=== PATIENT | male | born 1985 | race Two or more races ===

== ENCOUNTER 2024-09-27 15:28 | Emergency (ER) | payer MEDICAID, SELFPAY ==
[2024-09-27 15:44] VITALS: BP 141/88; PULSE 110; PULSE 90; RESP 15; RESP 16; TEMP 36.8; O2SAT 95; O2SAT 98; BMI 29.8
[2024-09-27 17:27] VITALS: BP 137/86; PULSE 88; RESP 18; TEMP 37.2; O2SAT 95
--- NOTE | 2024-09-27 17:29 | XR_ITS ---
Examination: AP chest single view Technique one AP portable upright chest single view Exam date and time: September 19, 2024 1742 hrs. Comparison December 24, 2018 Indications: Onset chest pain today. Findings: Minimal prominence left ventricle No pneumonia or pulmonary edema The osseous structures are intact Impression: No active disease
--- NOTE | 2024-09-27 17:29 | EKG_ITS ---
[facility] Test Date: 2024-09-27 Pat Name: ELLEN GONZALEZ Department: Room: - Gender: Male Government Relations Director: : 1985 Requested By: Arleen Bal Order Number: [id number] Reading MD: Arleen Bal Measurements Intervals [place] Rate: 87 P: 43 VT: 156 QRS: 34 QRSD: 118 T: 21 QT: 367 QTc: 442 Interpretive Statements SINUS RHYTHM INCOMPLETE RIGHT BUNDLE BRANCH BLOCK [90+ ms QRS DURATION, TERMINAL R IN V1/V2, 40+ ms S IN I/aVL/V4/V5/V6] No previous ECG available for comparison /store/S0/[id number].pdf
[2024-09-27 18:00] LABS: Basophils % (Auto) 1 % (0-2.5); Eosinophils % (Auto) 1 % (0-10); Hematocrit 43.1 % (41.0-53.0); Hemoglobin 14.9 g/dL (13.5-16.0); Immature Granulocytes % (Auto) 0 % (0-0); Immature Granulocytes Auto 0.02 Thou/mm3 (0.00-0.00); Lymphocytes # (Auto) 1.4 Thou/mm3 (1.0-4.8); Lymphocytes % (Auto) 17 % (10-50); Mean Corpuscular HGB Conc 34.6 g/dl (31.0-37.0); Mean Corpuscular Hemoglobin 29.3 pg (25.0-35.0); Mean Corpuscular Volume 85 fL (80-100); Monocytes # (Auto) 0.5 Thou/mm3 (0.0-0.8); Monocytes % (Auto) 6 % (0-12); Neutrophils # (Auto) 6.1 Thou/mm3 (1.8-7.7); Neutrophils % (Auto) 76 % (37-80); Nucleated Red Blood Cell % 0 /100 WBC (0); Platelet Count 167 Thou/mm3 (140-440); RDW Standard Deviation 39.3 fL (35.1-43.9); Red Blood Count 5.09 Miln/mm3 (4.50-5.90)
--- NOTE | 2024-09-27 18:07 | EDNOTE_ITS ---
ED Chest Pain RME/HPI General Chief Complaint: Chest Pain Stated Complaint: CHEST PAIN Time Seen by Provider: 09/27/24 16:21 Arrival date/time: 09/27/24 15:28 This is a 39-year-old male that comes in with complaints of chest pain and left arm pain that started prior to arrival. Patient reports history of chronic alcoholism. Patient admitted last year for GI bleed with acute alcohol withdrawal. Previous EGD showed esophagitis; acute gastritis without bleeding; large ulceration at GE junction; large Violeta-Victoria tear. Patient reports that he drinks daily states he drinks about 6 beers a day. Related Data Allergies Allergy/AdvReac Type Severity Reaction Status Date / Time No Known Allergies Allergy Verified 12/16/22 23:36 Review of Systems Review of Systems Systems Reviewed: All systems reviewed, normal except as documented Past Medical History Past Medical History CARDIAC: Negative Congestive Heart Failure RESPIRATORY: Negative Chronic Obstructive Pulmonary Disease (COPD) GENITOURINARY: Negative Renal Disease ENDOCRINE: Negative Diabetes Mellitus Type 1 or Diabetes Mellitus Type 2 Social History SMOKING STATUS: Never smoker Travel History EBOLA RISK: No ED Exam General General appearance: Present alert and in no apparent distress Head Head exam: Present atraumatic Eye Eye exam: Present normal appearance, PERRL and EOMI ENT ENT exam: Present normal exam, normal oropharynx and mucous membranes moist Neck Neck exam: Present normal inspection, full ROM and trachea midline Chest Chest inspection: Present normal inspection and symmetric chest wall rise Respiratory Respiratory exam: Present normal lung sounds bilaterally Cardiovascular Cardiovascular exam: Present regular rate, normal rhythm and normal heart sounds Abdominal Exam Abdominal exam: Present soft Extremities Exam Extremities exam: Present normal inspection and full ROM Back Exam Back exam: Present normal inspection and full ROM Neurological Exam Neurological exam: Present alert, oriented X3 and CN II-XII intact Psychiatric Psychiatric exam: Present normal affect and normal mood Skin Skin exam: Present warm, dry, intact and normal color Course Quality Measures none Orders Category Date Time Status EKG (ED ONLY) *Do not use* NOW Care 09/27/24 17:[address] abdomen pelvis wo con Stat Exams 09/27/24 19:42 Completed EKG (ED Only) Stat Exams 09/27/24 17:29 Draft XR chest 1V Stat Exams 09/27/24 17:29 Completed BNP [B-Type Natriuretic Peptide] Stat Lab 09/27/24 17:50 Completed CBC Stat Lab 09/27/24 17:50 Completed Comprehensive Metabolic Panel Stat Lab 09/27/24 17:50 Completed Drug Screen,Urine Stat Lab 09/27/24 19:14 Completed PT [Prothrombin Time with INR] Stat Lab 09/27/24 17:50 Completed Troponin I Stat Lab 09/27/24 17:50 Completed Urinalysis Stat Lab 09/27/24 19:14 Completed Urine Culture Stat Lab 09/27/24 19:14 Completed Ibuprofen Tab [Motrin Tab] Med 09/27/24 21:31 Discontinued 800 mg PO X1 ONE cefTRIAXone [Rocephin] 1,000 mg Med 09/27/24 21:31 Discontinued Lidocaine 1% 20 ml [Xylocaine 1% 20 ML] 2.1 ml IM X1 Vital Signs Vital signs: Vital Signs Temperature 98.3 F 09/27/24 15:44 Pulse Rate 90 09/27/24 15:44 Respiratory Rate 15 09/27/24 15:44 Blood Pressure 141/88 H 09/27/24 15:44 Pulse Oximetry (%) 95 09/27/24 15:44 Oxygen Delivery Method Room Air 09/27/24 15:44 Procedures -ED EKG Interpretation #1: Date of EK09/27/24 Time of EK:42 Rate: 87 Interpretation: Interpreted by me (sinus rhythm ) EKG Impression: No ectopy and Normal intervals Chest Pain MDM Narrative MDM Narrative:: chest x ray shows: Findings: Minimal prominence left ventricle No pneumonia or pulmonary edema The osseous structures are intact Impression: No active disease ct abdomen pelvis: Findings: Diffuse fatty liver, no focal liver lesions No gallstones No pancreatic or adrenal mass Spleen is not enlarged No renal or ureteral calculi, no hydronephrosis Aorta normal size Normal appendix No bowel obstruction Urinary bladder intact No prostatomegaly Intact osseous structures Impression: Fatty liver No renal or ureteral calculi, no hydronephrosis Normal appendix No bowel obstruction or diverticulitis No bladder mass or bladder calculi Labs are unremarkable for the most part patient had slightly elevated LFTs. Patient also had blood in urine. CT scan does not show infection nor kidney stones. Will give the patient a dose of Rocephin and make him follow-up with his urine culture. Patient does not report difficulty urinating. Pt given ibuprofen for pAIN Patient data External records reviewed:: [facility] previous records Clinical information provided by:: patient Social determinants that could affect healthcare access:: none Patient has the following chronic illnesses:: NONE How is presenting disease/condition affected by chronic disease/condition?: uneffected by Evaluation data The following diagnostics were reviewed and interpreted by me:: lab results, radiology exam(s) and EKG tracing(s) Lab and/or radiology exams considered but not ordered:: NONE Interpretation Summary: SEE NOTE Medications / Prescriptions Medications or Prescriptions considered but not ordered:: NONE Medication administrations:: Medication Administration History Discontinued Medications Ceftriaxone Sodium 1,000 mg/ (Lidocaine HCl 2.1 ml) 0 mg IM X1 ONE Stop: 09/27/24 21:32 Last Admin: 09/27/24 21:44 Dose: 1,000 mg Documented By: MAURO Ibuprofen (Ibuprofen Tab 400 Mg Tablet) 800 mg PO X1 ONE Stop: 09/27/24 21:32 Last Admin: 09/27/24 21:43 Dose: 800 mg Documented By: MAURO SEE MAR Consultations Consultation(s) initiated? (list below): No Diagnosis Most likely diagnosis given after review of the tests above:: HEMATURIA Admission Indicated Admission indicated?: not indicated Admission Request Was there a request for admission?: No Disposition Plan Disposition Plan: Discharge Discharge Attestation Discharge Attestation: The patient and all family members were given an opportunity to ask questions and understood the discharge instructions. Discharge instructions specifically effects, indications for sooner follow up or return to the emergency department, and the expected course of current diagnosis. Patient condition: Stable Discharge Plan Plan Patient Disposition: HOME (Self Care) Patient condition on transfer: Stable Prescriptions/Referrals Referrals: Linden Valente MD [Primary Care Provider] - In 1 week Problem List Clinical Impression: Hematuria, Elevated liver function tests Patient/Caregiver Discharge Instructions Discharge Activity: activity as tolerated Education Materials: ED Hematuria Additional Instructions: FOLLOW Up with primary provider in 1 to 2 days. Come back to the emergency room if symptoms change or worsen. Urine was sent for culture please follow-up with culture. Print Language: Gabonese Stand Alone Forms: Amisha Award Info., Patient Portal Info Letter PA/ABATTOIR MANAGER Supervising Physician PA/SAVANNA Supervising Physician: marry
[2024-09-27 18:16] LABS: INR 1.1 (0.9-1.3); Prothrombin Time 11.8 Seconds (9.0-12.2)
[2024-09-27 18:31] LABS: B-Type Natriuretic Peptide < 20 pg/mL (0-100)
[2024-09-27 18:34] LABS: Alanine Aminotransferase 64 U/L (10-49); Albumin, Serum 4.7 gm/dL (3.5-5.0); Albumin/Globulin Ratio 1.7 (1.2-2.2); Alkaline Phosphatase 99 U/L (46-116); Anion Gap 11 (7-16); Aspartate Amino Transferase 55 U/L (0-34); BUN/Creatinine Ratio 19 Ratio (12-20); Bilirubin,Total 1.1 mg/dL (0.3-1.2); Blood Urea Nitrogen 15 mg/dL (9-23); Carbon Dioxide 26.9 mMol/L (20.0-31.0); Chloride 103 mMol/L (98-107); Creatinine (Component) 0.8 mg/dL (0.6-1.3); Estimated Creatinine Clearance 128.5 mL/min (>60); Globulin 2.7 gm/dL (2.3-3.5); Glucose 116 mg/dL (74-106); Osmolality,Calculated 283 (275-295); Sodium 141 mMol/L (136-145); Total Protein 7.4 gm/dL (5.7-8.2); Troponin I < 0.002 ng/mL (0.0-0.045); eGFR > 60 See Note
[2024-09-27 18:48] VITALS: BP 140/93; PULSE 85; RESP 20; TEMP 36.9; O2SAT 95
[2024-09-27 19:18] VITALS: BP 125/80; PULSE 96; RESP 16; O2SAT 95
[2024-09-27 19:32] LABS: Collection Type, Urine Clean Catch; Squamous Epithelial Cell,Urine 0 /hpf (0-5)
[2024-09-27 19:41] LABS: Bacteria,Urine Rare; Bilirubin,Urine Negative (Negative); Blood,Urine 1+ (Negative); Clarity,Urine Clear (Clear/Hazy); Color,Urine Yellow (Lt Yel-Yel); Glucose, Urine Negative (Negative); Ketones,Urine Negative (Negative); Leukocyte Esterase,Urine Negative (Negative); Nitrite,Urine Negative (Negative); PH,Urine 7.5 (5.0-7.0); Protein,Urine 1+ (Neg - Trace); RBC,Urine 65 /hpf (0-3); Specific Gravity,Urine 1.033 (1.001-1.035); WBC,Urine 2 /hpf (0-5)
--- NOTE | 2024-09-27 19:42 | XR_ITS ---
Examination: CT abdomen and pelvis without contrast. Coronal 3-D reconstructions. Sagittal 2-D reconstructions. Date and time of exam:September 19, 2024 1950 hrs. Comparison: May 03, 2023 Indications: Generalized abdominal pain and nausea beginning today CTDI: vol (mGy): 7.8 DLP: (mGycm): 493 Technique: Axial images of the abdomen have been obtained, 3 mm slice thickness Intravenous contrast material has not been administered. Low dose protocols were performed. One or more of the following dose reduction techniques were used; automated exposure control, adjustment of the mA and/or KV according to patient size, use of iterative reconstruction technique. Findings: Diffuse fatty liver, no focal liver lesions No gallstones No pancreatic or adrenal mass Spleen is not enlarged No renal or ureteral calculi, no hydronephrosis Aorta normal size Normal appendix No bowel obstruction Urinary bladder intact No prostatomegaly Intact osseous structures Impression: Fatty liver No renal or ureteral calculi, no hydronephrosis Normal appendix No bowel obstruction or diverticulitis No bladder mass or bladder calculi
[2024-09-27 19:45] LABS: Amphetamine/Methamp Scrn,U Negative (Negative); Barbiturate Screen,Urine Negative (Negative); Benzodiazepines Screen,Urine Negative (Negative); Benzoylecgonine Screen, Ur Negative (Negative); Fentanyl Screen,Urine Negative (Negative); Opiate Screen,Urine Negative (Negative); THC Screen,Urine Negative (Negative)
[2024-09-27 21:21] VITALS: BP 134/85; PULSE 93; RESP 17; O2SAT 95
[2024-09-27] MEDS: IBUPROFEN TAB 400 MG TABLET 800 MG PO (21:43)
[2024-09-27] MEDS: cefTRIAXone 1,000 MG, LIDOCAINE 1% 20 ML 2.1 ML IM (21:44)
[2024-09-27 22:04] VITALS: BP 128/76; PULSE 86; RESP 16; TEMP 36.8; O2SAT 98
== END 2024-09-27 22:05 | disposition home or self-care (01) ==
PROVIDERS: Nurse Practitioner Family; Emergency Provider Emergency Medicine; PCP Family Medicine
DX: R31.9 Hematuria, unspecified (principal); F10.20 Alcohol dependence, uncomplicated; K76.0 Fatty (change of) liver, not elsewhere classified; R79.89 Other specified abnormal findings of blood chemistry; M79.602 Pain in left arm; R07.9 Chest pain, unspecified
CPT/HCPCS: 36415; 71045; 74176; 80053; 80307; 81001; 83880; 84484; 85025; 85610; 87086; 93005; 96372; 99284; J0696; J3490; A9270

== ENCOUNTER 2025-01-22 04:38 | Emergency (ER) | payer MEDICAID, SELFPAY ==
[2025-01-22 04:40] VITALS: PULSE 77; O2SAT 97
[2025-01-22 04:48] VITALS: BP 165/98; PULSE 80; RESP 19; TEMP 37; O2SAT 96; BMI 30.7
--- NOTE | 2025-01-22 04:51 | PD.EDADULT ---
ED General RME/HPI General Chief complaint: Headache Stated complaint: ELEVATED BP Time Seen by Provider: 01/22/25 04:41 Arrival date/time: 01/22/25 04:38 RME / HPI RME / HPI narrative: Dr. Ashby?s Main ED Evaluation: 39yo male with a history of HTN, alcohol abuse BIBA from home presents to the ED for a chief complaint of high blood pressure. Patient states he called EMS due to feeling shaky, reporting he did not take his antihypertensives last night. Patient states he last drank alcohol at 1700. Patient denies any headache, dizziness, lightheadedness, blurry vision, chest pain, shortness of breath or any other associated symptoms. No known allergies. Per EMS, patient took his prescribed propanolol before he called EMS. Related Data Allergies Allergy/AdvReac Type Severity Reaction Status Date / Time No Known Allergies Allergy Verified 01/22/25 04:42 Review of Systems Review of Systems Systems Reviewed: All systems reviewed, normal except as documented ED Exam Narrative Physical exam: GENERAL APPEARANCE: alert and oriented x 4, well-developed, well-nourished, no acute distress VITALS: All vitals were reviewed and the pulse ox is 96% on room air, which is normal according to my interpretation. HEENT: Normocephalic, atraumatic; pupils equal, round, reactive to light; EOMI; mucous membranes pink, moist; oropharynx clear NECK: Supple LUNGS: CTABL; no wheezes, no rales, no rhonchi HEART: Regular rate, regular rhythm; normal S1, S2; no murmurs ABDOMEN: non distended; normal BS; soft, no tenderness, no guarding, no rebound; no masses, no organomegaly, no hernia BACK: no CVA tenderness EXTREMITIES: atraumatic; no edema NEUROLOGIC: awake; alert and oriented x4; cranial nerves II-XII grossly intact; no focal sensory or motor deficits PSYCHIATRIC: appropriate mood and affect SKIN: warm, dry, normal color; no rashes Course Quality Measures none Orders Category Date Time Status EKG (ED ONLY) *Do not use* NOW Care 01/22/25 05:02 Completed Insert IV STAT Care 01/22/25 05:[address] head/brain wo con Stat Exams 01/22/25 06:33 Completed EKG (ED Only) Stat Exams 01/22/25 05:02 Ordered XR chest 1V portable Stat Exams 01/22/25 05:03 Completed Alcohol, Blood Medical Stat Lab 01/22/25 05:39 Completed CBC Stat Lab 01/22/25 05:39 Completed Comprehensive Metabolic Panel Stat Lab 01/22/25 05:39 Completed Magnesium Stat Lab 01/22/25 05:39 Completed Prothrombin Time with INR Stat Lab 01/22/25 05:39 Completed Troponin I Stat Lab 01/22/25 05:39 Completed Urinalysis, C/S if Indicated Stat Lab 01/22/25 05:24 Completed Acetaminophen Tab [Tylenol ES Tab] Med 01/22/25 10:06 Discontinued 1,000 mg PO X1 ONE cloNIDine HCL [Catapres] Med 01/22/25 05:43 Discontinued 0.1 mg PO X1 ONE Vital Signs Vital signs: Vital Signs Temperature 98.6 F 01/22/25 04:48 Pulse Rate 80 01/22/25 04:48 Respiratory Rate 19 01/22/25 04:48 Blood Pressure 165/98 H 01/22/25 04:48 Pulse Oximetry (%) 96 01/22/25 04:48 Oxygen Delivery Method Room Air 01/22/25 04:48 Discharge Plan Plan Patient Disposition: HOME (Self Care) Patient condition on transfer: Stable Prescriptions/Referrals Referrals: Ashia Jacobson, SHIRT FOLDING MACHINE OPERATOR-C [Primary Care Provider] - In 1 week Problem List Clinical Impression: Alcohol abuse, Headache, Hypertension Patient/Caregiver Discharge Instructions Education Materials: Alcohol Addiction, ED Alcohol Abuse Additional Instructions: Your medical workup and CAT scan today were all negative. Please stop drinking as we discussed and seek help. Return if you are getting worse. Please consider taking a multivitamin daily for the next 3 months since alcohol depletes you have many vitamins and minerals. Eat a balanced diet. Follow-up with your doctor to address your blood pressure problems. Print Language: Citizen Of [place] Stand Alone Forms: Patient Portal Info Letter MDM Patient Acuity Low Acuity (complete MDM as needed) Narrative: Scribe Attestation: 01/22/25 Velia Jewell am scribing for and in the presence of Dr. Ashby. Labs and CXR are pending at the time of signout. 0543: Patient's blood pressure is 165/97. Clonidine 0.1mg ordered. 0600: Care signed out to Dr. Salazar (emergency physician). Past medical, surgical, social and family history reviewed. Vitals and home medications reviewed. Results and treatment plan discussed. They will assume the care of the patient at this time and will follow the patient, pending CXR, labs, and re-evaluation. Clinical Information Provided by: patient and EMS Medical Records reviewed [facility] (Per chart review, patient was seen here on 09/27/24 for elevated LFTs.) Chronic Illness/Social Conditions which may negatively complicate care or outcome(s)-explain: Hx of noncompliance, ETOH/drugs/substance abuse and Liver disease EKG EKG Interpretation(s): EKG done at 0514, NSR, rate of 75, normal axis, no ectopy, no acute ischemia, according to my interpretation. Medication Administration(s) Medication Administration History Discontinued Medications Acetaminophen (Acetaminophen 500 Mg Tablet) 1,000 mg PO X1 ONE Stop: 01/22/25 10:07 Last Admin: 01/22/25 10:14 Dose: 1,000 mg Documented By: RD Clonidine (Clonidine Hcl 0.1 Mg Tablet) 0.1 mg PO X1 ONE Stop: 01/22/25 05:44 Last Admin: 01/22/25 06:34 Dose: 0.1 mg Documented By: SF Diagnosis Differential Diagnosis ED Complaint MDM: essential HTN, hypertensive crisis, hypertensive urgency, med noncompliance
--- NOTE | 2025-01-22 05:03 | XR_ITS ---
Examination: AP chest single view Technique one AP portable upright chest single view Exam date and time: January 22, 2025 0550 hours Comparison September 19, 2024 INDICATIONS: Coughing today. FINDINGS: Normal heart size. Lungs are clear. The osseous structures are intact IMPRESSION: No active disease
[2025-01-22 05:32] LABS: Collection Type, Urine Clean Catch; Squamous Epithelial Cell,Urine 0 /hpf (0-5); WBC,Urine 0 /hpf (0-5)
[2025-01-22 05:57] LABS: Basophils % (Auto) 1 % (0-2.5); Eosinophils % (Auto) 0 % (0-10); Hematocrit 41.9 % (41.0-53.0); Hemoglobin 14.7 g/dL (13.5-16.0); Immature Granulocytes % (Auto) 0 % (0-0); Immature Granulocytes Auto 0.01 Thou/mm3 (0.00-0.00); Lymphocytes # (Auto) 1.3 Thou/mm3 (1.0-4.8); Lymphocytes % (Auto) 25 % (10-50); Mean Corpuscular HGB Conc 35.1 g/dl (31.0-37.0); Mean Corpuscular Hemoglobin 29.2 pg (25.0-35.0); Mean Corpuscular Volume 83 fL (80-100); Monocytes # (Auto) 0.3 Thou/mm3 (0.0-0.8); Monocytes % (Auto) 6 % (0-12); Neutrophils # (Auto) 3.5 Thou/mm3 (1.8-7.7); Neutrophils % (Auto) 69 % (37-80); Nucleated Red Blood Cell % 0 /100 WBC (0); Platelet Count 187 Thou/mm3 (140-440); RDW Standard Deviation 35.7 fL (35.1-43.9); Red Blood Count 5.03 Miln/mm3 (4.50-5.90); White Blood Count 5.1 Thou/mm3 (3.8-10.6)
[2025-01-22 06:09] LABS: Prothrombin Time 11.2 Seconds (9.0-12.2)
[2025-01-22 06:10] LABS: Bacteria,Urine Rare; Bilirubin,Urine Negative (Negative); Blood,Urine 2+ (Negative); Clarity,Urine Clear (Clear/Hazy); Color,Urine Colorless (Lt Yel-Yel); Culture Indicated,Urine Not Indicated; Glucose, Urine Negative (Negative); Ketones,Urine Negative (Negative); Leukocyte Esterase,Urine Negative (Negative); Nitrite,Urine Negative (Negative); PH,Urine 7.5 (5.0-7.0); Protein,Urine Negative (Neg - Trace); RBC,Urine < 1 /hpf (0-3); Specific Gravity,Urine 1.007 (1.001-1.035); Urobilinogen,Urine Negative mg/dL (0.0-1.0)
[2025-01-22 06:14] LABS: Alanine Aminotransferase 63 U/L (10-49); Albumin, Serum 4.5 gm/dL (3.5-5.0); Albumin/Globulin Ratio 1.6 (1.2-2.2); Alcohol, Blood Medical < 3.0 mg/dL (0-10.0); Alkaline Phosphatase 99 U/L (46-116); Anion Gap 9 (7-16); Aspartate Amino Transferase 61 U/L (0-34); BUN/Creatinine Ratio 10 Ratio (12-20); Bilirubin,Total 0.5 mg/dL (0.3-1.2); Blood Urea Nitrogen 8 mg/dL (9-23); Calcium 8.7 mg/dL (8.3-10.6); Calcium (Corrected) 8.7 mg/dL (8.5-10.1); Carbon Dioxide 29.5 mMol/L (20.0-31.0); Chloride 105 mMol/L (98-107); Creatinine (Component) 0.8 mg/dL (0.6-1.3); Estimated Creatinine Clearance 130.1 mL/min (>60); Globulin 2.8 gm/dL (2.3-3.5); Glucose 122 mg/dL (74-106); Magnesium 1.9 mg/dL (1.6-2.6); Osmolality,Calculated 284 (275-295); Sodium 143 mMol/L (136-145); Total Protein 7.3 gm/dL (5.7-8.2); Troponin I < 0.002 ng/mL (0.0-0.045); eGFR > 60 See Note
[2025-01-22 06:24] VITALS: BP 177/93; PULSE 84; RESP 18; TEMP 36.8; O2SAT 95
--- NOTE | 2025-01-22 06:28 | EDNOTE_ITS ---
Emergency Room Addendum <Emilie Bae - Last Filed: 01/22/25 09:41> Addendum Narrative: 0600: Care assumed from Dr. Ashby, the previous shift emergency physician. Past medical, surgical, social and family history reviewed. Vitals and home medications reviewed. I will assume the care of the patient at this time, pending labs/imaging/reassessment. Please refer to the emergency department record for history and examination from initial visit.?The following addendum documentation note is intended to reflect any pending information, findings, or radiology results not included in the patient?s initial chart. Patient 39-year-old comes in with headache nausea dizziness and drinks alcohol daily and also has some shakiness. Last drink was 5 PM yesterday. Medical workup was initiated by Dr. Ashby prior to my shift where he has a normal CBC chemistries are normal PT PTT and INR within normal limits. Slight elevation of transaminases of 61 and 63 and urinalysis came back essentially negative except for some blood alcohol level is less than 0 chest x-ray was was done and read by myself with no infiltrates no effusion normal heart. Normal soft tissues. On reevaluation at 0620 hrs. patient's blood pressure is down to 142/104 he evidently takes propranolol at home. He still does complain of a headache and not quite feeling right so we will get a CT of the head pending at 0630 hrs. Note there is been no head injury or trauma reported. 0845: Patient was able to walk to the restroom without difficulty. RADIOLOGY Ordering Physician: Guido Salazar MD Date of Service: 01/22/25 Procedure(s): CT head/brain wo con Accession Number(s): [id number] cc: Ashia Jacobson; Guido Salazar MD; Price Foley MD~ Examination: CT brain head without contrast. 2-D sagittal coronal reconstructions Date and time of exam:January 22, 2025 0817 hours INDICATIONS: Generalized headaches today CTDI: vol (mGy):53.4 DLP: (mGycm):1008 Technique: Multiple CT axial sections of the brain have been obtained, 5 mm slice thickness. Contrast has not been administered. 2-D sagittal, coronal reconstructions have been obtained Low dose protocols were performed. One or more of the following dose reduction techniques were used; automated exposure control, adjustment of the mA and/or KV according to patient size, use of iterative reconstruction technique. Findings: No significant ventricular enlargement. Intra-axial or extra-axial hemorrhage density is not seen. No mass effect or midline shift Basal cisterns are not remarkable. Fourth ventricle is midline. Cranial vault intact. 17 mm retention cyst in the right maxillary antrum Impression: Negative for acute hemorrhage, mass effect or midline shift Advise clinical correlation follow-up accordingly Dictated By: Price Foley MD Signed By: <Electronically signed by Price Foley MD in OV>01/22/25 0859 <Guido Salazar MD - Last Filed: 01/22/25 09:58> Addendum Narrative: 0600: Care assumed from Dr. Ashby, the previous shift emergency physician. Past medical, surgical, social and family history reviewed. Vitals and home medications reviewed. I will assume the care of the patient at this time, pe nding labs/imaging/reassessment. Please refer to the emergency department record for history and examination from initial visit.?The following addendum documentation note is intended to reflect any pending information, findings, or radiology results not included in the patient?s initial chart. Patient 39-year-old comes in with headache nausea dizziness and drinks alcohol daily and also has some shakiness. Last drink was 5 PM yesterday. Medical workup was initiated by Dr. Ashby prior to my shift where he has a normal CBC chemistries are normal PT PTT and INR within normal limits. Slight e levation of transaminases of 61 and 63 and urinalysis came back essentially negative except for some blood alcohol level is less than 0 chest x-ray was was done and read by myself with no infiltrates no effusion normal heart. Normal soft tissues. On reevaluation at 0620 hrs. patient's blood pressure is down to 142/104 he evidently takes propranolol at home. He still does complain of a headache and not quite feeling right so we will get a CT of the head pending at 0630 hrs. Note there is been no head injury or trauma reported. 0845: Patient was able to walk to the restroom without difficulty. CT of the head came back negative see the report below. Patient is clinically looks fine labs are unremarkable he knows to stop drinking take multivitamins return if getting worse. He is drinking fluids without any vomiting here. RADIOLOGY Ordering Physician: Guido Salazar MD Date of Service: 01/22/25 Procedure(s): CT head/brain wo con Accession Number(s): [id number] cc: Ashia Jacobson; Guido Salazar MD; Price Foley MD~ Examination: CT brain head without contrast. 2-D sagittal coronal reconstructions Date and time of exam:January 22, 2025 0817 hours INDICATIONS: Generalized headaches today CTDI: vol (mGy):53.4 DLP: (mGycm):1008 Technique: Multiple CT axial sections of the brain have been obtained, 5 mm slice thickness. Contrast has not been administered. 2-D sagittal, coronal reconstructions have been obtained Low dose protocols were performed. One or more of the following dose reduction techniques were used; automated exposure control, adjustment of the mA and/or KV according to patient size, use of iterative reconstruction technique. Findings: No significant ventricular enlargement. Intra-axial or extra-axial hemorrhage density is not seen. No mass effect or midline shift Basal cisterns are not remarkable. Fourth ventricle is midline. Cranial vault intact. 17 mm retention cyst in the right maxillary antrum Impression: Negative for acute hemorrhage, mass effect or midline shift Advise clinical correlation follow-up accordingly Dictated By: Price Foley MD Signed By: <Electronically signed by Price Foley MD in OV>01/22/25 0859
--- NOTE | 2025-01-22 06:33 | XR_ITS ---
Examination: CT brain head without contrast. 2-D sagittal coronal reconstructions Date and time of exam:January 22, 2025 0817 hours INDICATIONS: Generalized headaches today CTDI: vol (mGy):53.4 DLP: (mGycm):1008 Technique: Multiple CT axial sections of the brain have been obtained, 5 mm slice thickness. Contrast has not been administered. 2-D sagittal, coronal reconstructions have been obtained Low dose protocols were performed. One or more of the following dose reduction techniques were used; automated exposure control, adjustment of the mA and/or KV according to patient size, use of iterative reconstruction technique. Findings: No significant ventricular enlargement. Intra-axial or extra-axial hemorrhage density is not seen. No mass effect or midline shift Basal cisterns are not remarkable. Fourth ventricle is midline. Cranial vault intact. 17 mm retention cyst in the right maxillary antrum Impression: Negative for acute hemorrhage, mass effect or midline shift Advise clinical correlation follow-up accordingly
[2025-01-22 06:34] VITALS: BP 146/92; PULSE 72
[2025-01-22] MEDS: cloNIDine HCL 0.1 MG TABLET PO (06:34)
[2025-01-22 08:10] VITALS: BP 137/96; PULSE 80; RESP 18; TEMP 36.8; O2SAT 94
[2025-01-22 10:09] VITALS: BP 154/92; PULSE 75; RESP 18; TEMP 37.3; O2SAT 97
[2025-01-22] MEDS: ACETAMINOPHEN 500 MG TABLET 1000 MG PO (10:14)
== END 2025-01-22 10:19 | disposition home or self-care (01) ==
PROVIDERS: Emergency Medicine; Emergency Provider Emergency Medicine; PCP Nurse Practitioner Family
DX: F10.10 Alcohol abuse, uncomplicated (principal); I10 Essential (primary) hypertension; R51.9 Headache, unspecified
CPT/HCPCS: 36415; 70450; 71045; 80053; 80320; 81001; 83735; 84484; 85025; 85610; 93005; 99284; A9270; G0480